=== PATIENT | male | born 1980 | race African-American/Black ===

== ENCOUNTER 2018-09-27 16:29 | Emergency (ER) | payer OTHER ==
[~2018-09-27] VITALS: Ht 185.4 cm; Wt 140.2 kg
--- NOTE | 2018-09-27 16:46 | NUR ---
ED Nurse Note: Pt has been having sorethroat and coughing x 3 days. Pain 10/10 nathalie. HR 108 upon arrival, will cont to monitor.
[2018-09-27] MEDS ORDERED: Benzonatate 100mg Perles ORAL ONE (17:30)
[2018-09-27] MEDS ORDERED: Albuterol/Ipratropium 3ml neb HHN ONE (17:30)
--- NOTE | 2018-09-27 18:00 | NUR ---
ER DISCHARGE NOTE: Patient is cleared to be discharged per ERMD, pt is aox4, on room air, with stable vital signs. pt was given dc and prescription instructions, pt was able to verbalize understanding. pt is able to ambulate with steady gait. pt took all belongings.
[2018-09-27] MEDS ORDERED: IBUPROFEN600 MG ORAL (18:34)
[2018-09-27] MEDS ORDERED: TESSALON PERLE100 MG ORAL (18:34)
[2018-09-27] MEDS ORDERED: ALBUTEROL SULF8.5 GM INH (18:34)
[2018-09-27] MEDS ORDERED: PREDNISONE20 MG ORAL (18:34)
[2018-09-27] MEDS ORDERED: SUDAFED PE PRE1 EACH PO (18:34)
[2018-09-27] MEDS ORDERED: ZITHROMAX250 MG ORAL (18:34)
--- NOTE | 2018-09-27 18:34 | Emergency Room Report ---
History of Present Illness General Chief Complaint: Upper Respiratory Illness Source: Patient Present Illness HPI 38-year-old male patient presents ER with multiple complaints for the past 3 days and cough for the past month.. Complaining of fever, cough, sore throat, congestion during this time. Reports intermittent vomiting and diarrhea since that time, denies hematemesis or blood in stool. Reports is been able to tolerate p.o. fluids during this time. Reports difficulty breathing as well, states it is worse at night. Reports cough with sputum. Denies smoking cigarettes. Reports pain with swallowing. Denies history of heart attack and asthma. Denies calf pain. Denies recent travel. Denies abdominal pain. Denies other aggravating or relieving factors. States his been taking over-the- counter medications without relief of symptoms. Reports up-to-date on vaccinations, states not receive flu vaccine this year. Denies chest pain. Reports subjective fever at home, currently afebrile in the ER. Allergies: Coded Allergies: No Known Allergies (Unverified , 09/27/18) Patient History Past Medical History: see triage record Reviewed Nursing Documentation: PMH: Agreed; PSxH: Agreed Nursing Documentation-PMH Past Medical History: No History, Except For Hx Hypertension: Yes Review of Systems All Other Systems: negative except mentioned in HPI Physical Exam Vital Signs Date Time Temp Pulse Resp B/P (MAP) Pulse Ox O2 Delivery O2 Flow Rate FiO2 09/27/18 16:37 99.1 108 23 148/90 95 Room Air 09/27/18 17:40 21 Sp02 EP Interpretation: reviewed, normal General Appearance: well appearing, no apparent distress, alert, GCS 15, non- toxic Head: normocephalic, atraumatic Eyes: bilateral eye normal inspection, bilateral eye PERRL ENT: hearing grossly normal, normal pharynx, no angioedema, normal voice, TMs + canals normal, uvula midline, moist mucus membranes, nasal congestion, other - uvula midline Neck: full range of motion, no meningismus, no bony tend Respiratory: lungs clear, no rhonchi, no respiratory distress, no accessory muscle use, no wheezing, decreased breath sounds, speaking full sentences Cardiovascular #1: regular rate, rhythm, no edema Gastrointestinal: normal bowel sounds, non tender, soft, no mass, non-distended , no guarding, no rebound Genitourinary: no CVA tenderness Musculoskeletal: back normal, digits/nails normal, gait/station normal, normal range of motion, non-tender Neurologic: alert, oriented x3, responsive, motor strength/tone normal, sensory intact, cerebellar normal, normal gait, speech normal, other - Negative Kernig, negative Brudzinski Psychiatric: mood/affect normal Skin: no rash Lymphatic: no adenopathy Medical Decision Making PA Attestation Dr. Gao is my supervising Physician whom patient management has been discussed with. Diagnostic Impression: Primary Impression: Upper respiratory infection Additional Impressions: Atypical pneumonia Sore throat ER Course Pt presents to ED c/o cough congestion, shortness of breath, fever, sore throat. DDX considered but are not limited to asthma, viral URI, influenza, bronchitis, pneumonia, strep throat, rhinitis, sinusitis, otitis media, otitis externa, meningitis, sepsis. Negative Kernig, negative brudzinski, low suspicion for meningitis. VITAL SIGNS are WNL, patient is afebrile. Ordered breathing treatment and medication. ER COURSE Decreased lung sounds noted, will order breathing treatment for patient. CXR negative for acute disease, however, due to length of symptoms, will provide patient with abx to cover for atypical PNA. no tonsillar exudates, no pharyngeal erythema, history of cough, no fever, no stridor, uvula midline, low suspicion for peritonsillar abscess or bacterial strep throat. Likely viral etiology of symptoms. Symptomatic treatment. drink plenty of fluids. Salt water gargles for sore throat. Followup with PCP for further treatment and/or referral as needed. Patient provided with prednisone Duoneb breathing treatment provided. Following treatment patient states no longer having difficulty with breathing. Lung sounds improved. Patient is resting comfortably in no acute distress. Patient reports feeling better. OK for discharge to home for outpatient treatment. ER precautions given. DISCHARGE: -Rx given for Prednisone. -Rx provided for Albuterol MDI. -Rx provided for Tessalon Perles Rx provided for Azithromycin Rx provided for Motrin Rx provided for Sudafed At this time pt is stable for d/c to home. Patient is resting comfortably in no acute distress, nontoxic appearing, able to answer questions without difficulty. Patient to take medications as instructed Will provide with patient care instructions and any necessary prescriptions. Care plan and follow-up instructions provided. Patient instructed to follow-up with primary care provider in 3 - 5 days. Patient questions asked and answered. Patient reports understanding and agreement to treatment plan. ER precautions given. Patient instructed to return to ER immediately for any new or worsening of symptoms including but not limited to increasing SOB, persistent fever. - Please note that this Emergency Department Report was dictated using [employer] washer technology software, occasionally this can lead to erroneous entry secondary to interpretation by the dictation equipment. Pt presents to ED c/o Chest X-Ray Diagnostic Results Chest X-Ray Diagnostic Results : Chest X-Ray Ordered: Yes # of Views/Limited/Complete: 1 View Indication: Shortness of Breath EP Interpretation: Yes PA Xray: Interpretation reviewed, by supervising MD, and agrees with findings. Interpretation: no consolidation, no effusion, no pneumothorax, no acute cardiopulmonary disease Impression: No acute disease ROGER Martin PA-C Last Vital Signs Date Time Temp Pulse Resp B/P (MAP) Pulse Ox O2 Delivery O2 Flow Rate FiO2 09/27/18 17:50 107 16 97 Room Air 21 09/27/18 16:37 99.1 148/90 Status: improved Disposition: HOME, SELF-CARE Condition: Stable Scripts Ibuprofen* (MOTRIN*) 600 Mg Tablet 600 MG ORAL Q8H PRN for For Pain, #30 TAB 0 Refills Prov: Montrell Martin 09/27/18 Benzonatate* (TESSALON PERLE*) 100 Mg Capsule 100 MG ORAL THREE TIMES A DAY, #30 PERLE Prov: Montrell Martin 09/27/18 D-Methorphan/PE/Acetaminophen (Sudafed PE Pressure+Pain+Cough) 1 Each Tablet 1 EACH PO BID, #24 TAB Prov: Montrell Martin 09/27/18 Azithromycin* (ZITHROMAX*) 250 Mg Tablet 250 MG ORAL DAILY, #6 TAB 0 Refills Take two tables once daily for 1 day, then one tablet once daily for 4 days. Prov: Montrell Martin 09/27/18 Albuterol Sulfate* (ALBUTEROL SULFATE MDI*) 8.5 Gm Hfa.aer.ad 2 PUFF INH Q6H, #1 INH 0 Refills Prov: Montrell Martin 09/27/18 Prednisone* (PREDNISONE*) 20 Mg Tablet 40 MG ORAL DAILY for 4 Days, #8 TAB Prov: Montrell Martin 09/27/18 Patient Instructions: Upper Respiratory Infection, Adult Additional Instructions: Followup with primary care provider in 3 -5 days. Salt water gargles Take Tylenol for pain and fever symptoms Drink plenty of water. Take medications as directed. Patient questions asked and answered. ER precautions given, patient instructed to return to ER immediately for any new or worsening of symptoms including but not limited to intractable vomiting, difficulty breathing, inability to eat. Montrell Martin Sep 27, 2018 18:34
[2018-09-27 19:42] VITALS: BP 148/90
--- NOTE | 2018-09-28 11:56 | Diagnostic Imaging Report ---
Indication: Cough Technique: One view of the chest Comparison: Findings: Lungs and pleural spaces are clear. Heart size is normal Impression: No acute process
== END 2018-09-27 19:42 | disposition home or self-care (01) ==
LOC: EMR 17:06
DX: J06.9 Acute upper respiratory infection, unspecified (principal); J18.9 Pneumonia, unspecified organism; J02.9 Acute pharyngitis, unspecified; I10 Essential (primary) hypertension
CPT/HCPCS: 71045; 94640; 99284; J7512; J7620